=== PATIENT | female | born 1985 | race Caucasian/White ===

== ENCOUNTER 2021-08-20 13:36 | Inpatient (IN) | payer BC ==
[2021-08-20] MEDS ORDERED: Acetaminophen 325 MG Tab PO PRN (14:19)
[2021-08-20] MEDS ORDERED: Nalbuphine 10 MG/1 ML Vial IVPUSH PRN (14:19)
[2021-08-20] MEDS ORDERED: Ondansetron 4 MG/2 ML SDV IVPUSH PRN (14:19)
[2021-08-20] MEDS ORDERED: Calcium Carbonate 500 MG Tab.Chew PO PRN (14:19)
[2021-08-20] MEDS ORDERED: Sodium Chloride 0.9% 10 ML Syringe FLUSH PRN (14:19)
[2021-08-20] MEDS ORDERED: Oxytocin/Lactated Ringers 10 UNIT/1,000 ML BAG IV SCH ×2 (14:30)
[2021-08-20] MEDS: Lactated Ringers 1,000 ML IV SCH ×2 (15:00→16:18)
[2021-08-20] MEDS ORDERED: Bupivacaine/fentaNYL/NS 100 ML Bag EPIDUR PRN (15:13)
[2021-08-20] MEDS ORDERED: ePHEDrine 50 MG/ML SDV IVPUSH PRN (15:13)
[2021-08-20] MEDS ORDERED: diphenhydrAMINE 50 MG/ML SDV IVPUSH PRN (15:13)
[2021-08-20] MEDS ORDERED: fentaNYL 100 MCG/2 ML SDV EPIDUR PRN (15:13)
--- NOTE | 2021-08-20 16:11 | PCM.PREANE ---
Preanesthetic Assessment - Procedure Proposed Procedure: epidural - Anesthesia/Transfusion/Family Hx Anesthesia History: No Prior Anesthesia Family History of Anesthesia Reaction: No Transfusion History: No Prior Transfusion(s) - Review of Systems General: Fatigue, Malaise Pulmonary: No Symptoms Cardiovascular: No Symptoms Gastrointestinal: Abdominal Pain (labor) Neurological: No Symptoms Other: Reports: None - Physical Assessment Vital Signs: Last Vital Signs Temp 36.8 C 08/20/21 14:13 Pulse 66 08/20/21 14:13 Resp 14 08/20/21 14:13 BP 128/80 08/20/21 14:13 Pulse Ox 100 08/20/21 14:13 Height: 1.68 m Weight: 70.08 kg ASA Class: 2 Mental Status: Alert & Oriented x3 Airway Class: Mallampati = 1 Dentition: Reports: Normal Dentition Thyro-Mental Finger Breadths: 3 Mouth Opening Finger Breadths: 3 ROM/Head Extension: Full Lungs: Clear to Auscultation, Normal Respiratory Effort Cardiovascular: Regular Rate, Regular Rhythm - Lab Values: Laboratory Last Values WBC 12.40 K/mm3 (3.98-10.04) H 08/20/21 14:37 RBC 4.28 M/mm3 (3.98-5.22) 08/20/21 14:37 Hgb 13.4 gm/dl (11.2-15.7) 08/20/21 14:37 Hct 39.3 % (34.1-44.9) 08/20/21 14:37 MCV 91.8 fl (79.4-94.8) 08/20/21 14:37 MCH 31.3 pg (25.6-32.2) 08/20/21 14:37 MCHC 34.1 g/dl (32.2-35.5) 08/20/21 14:37 RDW Std Deviation 44.1 fL (36.4-46.3) 08/20/21 14:37 Plt Count 139 K/mm3 (182-369) L 08/20/21 14:37 MPV 11.0 fl (9.4-12.3) 08/20/21 14:37 Neut % (Auto) 85.8 % (34.0-71.1) H 08/20/21 14:37 Lymph % (Auto) 9.1 % (19.3-51.7) L 08/20/21 14:37 [place] % (Auto) 4.5 % (4.7-12.5) L 08/20/21 14:37 Eos % (Auto) 0.2 (0.7-5.8) L 08/20/21 14:37 Baso % (Auto) 0.2 % (0.1-1.2) 08/20/21 14:37 Neut # (Auto) 10.63 K/mm3 (1.56-6.13) H 08/20/21 14:37 Lymph # (Auto) 1.13 K/mm3 (1.18-3.74) L 08/20/21 14:37 [place] # (Auto) 0.56 K/mm3 (0.24-0.36) H 08/20/21 14:37 Eos # (Auto) 0.03 K/mm3 (0.04-0.36) L 08/20/21 14:37 Baso # (Auto) 0.02 K/mm3 (0.01-0.08) 08/20/21 14:37 SARS-CoV-2 RNA (MILENA) Negative (NEGATIVE) 08/20/21 14:40 Blood Type O POSITIVE 08/20/21 14:37 Gel Antibody Screen Negative 08/20/21 14:37 - Allergies Allergies/Adverse Reactions: Allergies Allergy/AdvReac Type Severity Reaction Status Date / Time No Known Allergies Allergy Verified 08/20/21 13:54 - Anesthesia Plan Pre-Op Medication Ordered: None - Acknowledgements Anesthesia Type Planned: Epidural Pt an Appropriate Candidate for the Planned Anesthesia: Yes Alternatives and Risks of Anesthesia Discussed w Pt/Guardian: Yes Pt/Guardian Understands and Agrees with Anesthesia Plan: Yes PreAnesthesia Questionnaire Gastrointestinal History: Reports: GERD - HOME MEDS Home Medications: Home Meds Acetaminophen [Tylenol] 650 mg PO Q4H PRN #50 tablet 07/23/15 [Rx] Hydrocodone/Acetaminophen [[place] 5-325 Tablet] 1 each PO Q8H #15 tablet 07/23/15 [Rx] Ibuprofen [Motrin] 200 - 800 mg PO Q6H #50 tablet 07/23/15 [Rx] - CURRENT (IN HOUSE) MEDS Current Meds: Current Medications Acetaminophen (Acetaminophen 325 Mg Tab) 650 mg PO Q4H PRN PRN Reason: Pain (Mild 1-3) and fever Calcium Carbonate/Glycine (Calcium Carbonate 500 Mg Tab.Chew) 1,000 mg PO Q2H PRN PRN Reason: Indigestion Diphenhydramine HCl (Diphenhydramine 50 Mg/Ml Sdv) 25 mg IVPUSH Q6H PRN PRN Reason: pruritis Ephedrine Sulfate (Ephedrine 50 Mg/Ml Sdv) 5 mg IVPUSH ASDIRECTED PRN PRN Reason: Hypotension Fentanyl (Fentanyl 100 Mcg/2 Ml Sdv) 100 mcg EPIDUR Q3H PRN PRN Reason: Pain Last Admin: 08/20/21 15:45 Dose: 100 mcg Documented by: Fentanyl/Bupivacaine HCl (Bupivacaine/Fentanyl/Ns 100 Ml Bag) 100 ml EPIDUR ASDIRECTED PRN PRN Reason: Pain Last Admin: 08/20/21 15:46 Dose: 100 ml Documented by: Lactated Ringer's (Ringers, Lactated) 1,000 mls @ 100 mls/hr IV ASDIRECTED SUSIE Last Admin: 08/20/21 15:00 Dose: 100 mls/hr Documented by: Oxytocin/Lactated Ringer's (Pitocin In Lr 10 Units/1,000 Ml) 10 unit in 1,000 mls @ 12 mls/hr IV TITRATE SUSIE; Protocol Oxytocin/Lactated Ringer's (Pitocin In Lr 10 Units/1,000 Ml) 10 unit in 1,000 mls @ 500 mls/hr IV .CONTINUOUS SUSIE Nalbuphine HCl (Nalbuphine 10 Mg/1 Ml Vial) 10 mg IVPUSH Q2H PRN PRN Reason: Pain Ondansetron HCl (Ondansetron 4 Mg/2 Ml Sdv) 4 mg IVPUSH Q4H PRN PRN Reason: Nausea/Vomiting Sodium Chloride (Sodium Chloride 0.9% 10 Ml Syringe) 10 ml FLUSH ASDIRECTED PRN PRN Reason: Keep Vein Open
[2021-08-20] MEDS ORDERED: Bupivacaine 0.25% 10 ML SDV ONE (20:00)
--- NOTE | 2021-08-20 21:48 | PCM.LDHP ---
L&D History of Present Illness - General Date of Service: 08/20/21 Admit Problem/Dx: Patient Status Order with Admit Dx/Problem 08/20/21 13:48 Patient Status [ADT] Routine 08/20/21 14:20 Patient Status [ADT] Routine Admission Diagnosis/Problem Admission Diagnosis/Problem Term Source of Information: Patient History Limitations: Reports: No Limitations - History of Present Illness Introduction:: 35 year old at 39w2 here in active labor. Contractions started getting more regular this morning and then much stronger and more regular on the drive from [place] around [place]. PNC with Dr. Pavon complicated by AMA normal NIPT. 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: Psychiatric History: Reports: Anxiety - Past Surgical History HEENT Surgical History: Reports: Oral Surgery, Tonsillectomy Female Surgical History: Reports: Other (See Below) Other Female Surgeries/Procedures: HSIL in 2014, colposcopy in 2014 Social & Family History - Family History Family Medical History: No Pertinent Family History - Tobacco Use Tobacco Use Status *Q: Never Tobacco User Second Hand Smoke Exposure: No - Recreational Drug Use Recreational Drug Use: No H&P Review of Systems - Review of Systems: Review Of Systems: See Below General: Reports: No Symptoms HEENT: Reports: No Symptoms Pulmonary: Reports: No Symptoms Cardiovascular: Reports: No Symptoms Gastrointestinal: Reports: No Symptoms Genitourinary: Reports: No Symptoms Musculoskeletal: Reports: No Symptoms Skin: Reports: No Symptoms Psychiatric: Reports: No Symptoms Neurological: Reports: No Symptoms Hematologic/Lymphatic: Reports: No Symptoms Immunologic: Reports: No Symptoms L&D Exam - Exam Exam: See Below - Vital Signs Vital Signs: Last Vital Signs Temp 36.8 C 08/20/21 14:13 Pulse 66 08/20/21 14:13 Resp 14 08/20/21 14:13 BP 128/80 08/20/21 14:13 Pulse Ox 100 08/20/21 14:13 Weight: 70.08 kg - OB Specific Contraction Intensity: Irritability Movement: Active Heart Tones: Present Heart Rate (FHR) Variability: Moderate (6-25 bpm) Presentation: Vertex - Michelle Score Michelle Score Cervix Position: Midposition Michelle Score Consistency: Soft Michelle Score Effacement: 51-70% Michelle Score Dilation: 3-4 cm Michelle Score Infant's Station: -2 Michelle Score Total: 8 - Exam General: Alert, Oriented HEENT: PERRLA, Conjunctiva Clear, EACs Clear, EOMI, Hearing Intact, Mucosa Moist & [place], Nares Patent, Normal Nasal Septum, Posterior Pharynx Clear, TMs Clear Neck: Supple, Trachea Midline Lungs: Clear to Auscultation, Normal Respiratory Effort Cardiovascular: Regular Rate GI/Abdominal Exam: Normal Bowel Sounds Rectal Exam: Normal Exam Back Exam: Normal Inspection, Full Range of Motion Extremities: Normal Inspection, Normal Range of Motion, Non-Tender, No Pedal Edema, Normal Capillary Refill Skin: Warm, Dry, Intact Neurological: Cranial Nerves Intact, Reflexes Equal Bilateral Psychiatric: Alert, Normal Affect, Normal Mood - Patient Data Lab Results Last 24 hrs: Laboratory Results - last 24 hr 08/20/21 08/20/21 08/20/21 Range/Units 14:37 14:37 14:37 WBC 12.40 H (3.98-10.04) K/mm3 RBC 4.28 (3.98-5.22) M/mm3 Hgb 13.4 (11.2-15.7) gm/dl Hct 39.3 (34.1-44.9) % MCV 91.8 (79.4-94.8) fl MCH 31.3 (25.6-32.2) pg MCHC 34.1 (32.2-35.5) g/dl RDW Std Deviation 44.1 (36.4-46.3) fL Plt Count 139 L (182-369) K/mm3 MPV 11.0 (9.4-12.3) fl Neut % (Auto) 85.8 H (34.0-71.1) % Lymph % (Auto) 9.1 L (19.3-51.7) % [place] % (Auto) 4.5 L (4.7-12.5) % Eos % (Auto) 0.2 L (0.7-5.8) Baso % (Auto) 0.2 (0.1-1.2) % Neut # (Auto) 10.63 H (1.56-6.13) K/mm3 Lymph # (Auto) 1.13 L (1.18-3.74) K/mm3 [place] # (Auto) 0.56 H (0.24-0.36) K/mm3 Eos # (Auto) 0.03 L (0.04-0.36) K/mm3 Baso # (Auto) 0.02 (0.01-0.08) K/mm3 RPR Non-reactive (NONREACTIVE) SARS-CoV-2 RNA (MILENA) (NEGATIVE) Blood Type O POSITIVE Gel Antibody Screen Negative 08/20/21 Range/Units 14:40 WBC (3.98-10.04) K/mm3 RBC (3.98-5.22) M/mm3 Hgb (11.2-15.7) gm/dl Hct (34.1-44.9) % MCV (79.4-94.8) fl MCH (25.6-32.2) pg MCHC (32.2-35.5) g/dl RDW Std Deviation (36.4-46.3) fL Plt Count (182-369) K/mm3 MPV (9.4-12.3) fl Neut % (Auto) (34.0-71.1) % Lymph % (Auto) (19.3-51.7) % [place] % (Auto) (4.7-12.5) % Eos % (Auto) (0.7-5.8) Baso % (Auto) (0.1-1.2) % Neut # (Auto) (1.56-6.13) K/mm3 Lymph # (Auto) (1.18-3.74) K/mm3 [place] # (Auto) (0.24-0.36) K/mm3 Eos # (Auto) (0.04-0.36) K/mm3 Baso # (Auto) (0.01-0.08) K/mm3 RPR (NONREACTIVE) SARS-CoV-2 RNA (MILENA) Negative (NEGATIVE) Blood Type Gel Antibody Screen Result Diagrams: 08/20/21 14:37 Problem List Initiated/Reviewed/Updated: Yes Orders Last 24hrs: Active Orders 24 hr Category Date Time Status Patient Status [ADT] Routine ADT 08/20/21 14:20 Active Activity as Tolerated [RC] PFP Care 08/20/21 14:19 Active Communication Order [RC] ASDIRECTED Care 08/20/21 14:19 Active Communication Order [RC] ASDIRECTED Care 08/20/21 15:13 Active Cooling Warming Measures [RC] ASDIRECTED Care 08/20/21 15:13 Active Heart Tones [RC] ASDIRECTED Care 08/20/21 14:20 Active Non Stress Test [RC] PER UNIT ROUTINE Care 08/20/21 13:48 Active Notify Provider [RC] ASDIRECTED Care 08/20/21 15:13 Active Notify Provider [RC] ASDIRECTED Care 08/20/21 15:13 Active Notify Provider [RC] PFP Care 08/20/21 14:19 Active Notify Provider [RC] PRN Care 08/20/21 14:19 Active Oxygen Therapy [RC] ASDIRECTED Care 08/20/21 15:13 Active Peripheral IV Care [RC] . DIRECTED Care 08/20/21 14:20 Active Pulse Oximetry [RC] ASDIRECTED Care 08/20/21 15:13 Active Vital Signs [RC] PER UNIT ROUTINE Care 08/20/21 13:48 Active Regular Diet [DIET] Diet 08/20/21 Lunch Active HEP C VIRUS AB [REF] Stat Lab 08/20/21 14:37 Received Acetaminophen [TylenoL] Med 08/20/21 14:19 Active 650 mg PO Q4H PRN Bupivacaine/fentaNYL/NS [fentaNYL/Bupivacaine/NS 2 MCG- Med 08/20/21 15:13 Active 0.125% 100 ML] 100 ml EPIDUR ASDIRECTED PRN Calcium Carbonate [Tums] Med 08/20/21 14:19 Active 1,000 mg PO Q2H PRN Lactated Ringers [Ringers, Lactated] 1,000 ml Med 08/20/21 14:30 Active IV ASDIRECTED Nalbuphine [Nubain] Med 08/20/21 14:19 Active 10 mg IVPUSH Q2H PRN Ondansetron [Zofran] Med 08/20/21 14:19 Active 4 mg IVPUSH Q4H PRN Oxytocin/Lactated Ringers [Pitocin in LR 10 Units/1,000 Med 08/20/21 14:30 Active ML] 10 unit in 1,000 ml IV .CONTINUOUS Oxytocin/Lactated Ringers [Pitocin in LR 10 Units/1,000 Med 08/20/21 14:30 Active ML] 10 unit in 1,000 ml IV TITRATE Sodium Chloride 0.9% [Saline Flush] Med 08/20/21 14:19 Active 10 ml FLUSH ASDIRECTED PRN diphenhydrAMINE [Benadryl] Med 08/20/21 15:13 Active 25 mg IVPUSH Q6H PRN ePHEDrine [ePHEDrine sulfate] Med 08/20/21 15:13 Active 5 mg IVPUSH ASDIRECTED PRN fentaNYL [Sublimaze] Med 08/20/21 15:13 Active 100 mcg EPIDUR Q3H PRN Electronic Heart Tones Ext w TOCO [WOMSER] Oth 08/20/21 14:19 Ordered Routine Electronic Heart Tones Internal [WOMSER] Per Unit Oth 08/20/21 14:19 Ordered Routine Peripheral IV Insertion Adult [OM.PC] Routine Oth 08/20/21 14:19 Ordered Resuscitation Status Routine Resus Stat 08/20/21 13:48 Ordered Medication Orders Acetaminophen (Acetaminophen 325 Mg Tab) 650 mg PO Q4H PRN PRN Reason: Pain (Mild 1-3) and fever Calcium Carbonate/Glycine (Calcium Carbonate 500 Mg Tab.Chew) 1,000 mg PO Q2H PRN PRN Reason: Indigestion Diphenhydramine HCl (Diphenhydramine 50 Mg/Ml Sdv) 25 mg IVPUSH Q6H PRN PRN Reason: pruritis Ephedrine Sulfate (Ephedrine 50 Mg/Ml Sdv) 5 mg IVPUSH ASDIRECTED PRN PRN Reason: Hypotension Fentanyl (Fentanyl 100 Mcg/2 Ml Sdv) 100 mcg EPIDUR Q3H PRN PRN Reason: Pain Last Admin: 08/20/21 15:45 Dose: 100 mcg Documented by: KELLCOL Fentanyl/Bupivacaine HCl (Bupivacaine/Fentanyl/Ns 100 Ml Bag) 100 ml EPIDUR ASDIRECTED PRN PRN Reason: Pain Last Admin: 08/20/21 15:46 Dose: 100 ml Documented by: SHAWNA Lactated Ringer's (Ringers, Lactated) 1,000 mls @ 100 mls/hr IV ASDIRECTED SUSIE Last Admin: 08/20/21 16:18 Dose: 100 mls/hr Documented by: Infusion: 08/20/21 16:18 Dose: 100 mls/hr Documented by: Admin: 08/20/21 15:00 Dose: 100 mls/hr Documented by: SHAWNA Oxytocin/Lactated Ringer's (Pitocin In Lr 10 Units/1,000 Ml) 10 unit in 1,000 mls @ 12 mls/hr IV TITRATE SUSIE; Protocol Last Admin: 08/20/21 20:45 Dose: 2 munits/min, 12 mls/hr Documented by: STEVE Oxytocin/Lactated Ringer's (Pitocin In Lr 10 Units/1,000 Ml) 10 unit in 1,000 mls @ 500 mls/hr IV .CONTINUOUS SUSIE Nalbuphine HCl (Nalbuphine 10 Mg/1 Ml Vial) 10 mg IVPUSH Q2H PRN PRN Reason: Pain Ondansetron HCl (Ondansetron 4 Mg/2 Ml Sdv) 4 mg IVPUSH Q4H PRN PRN Reason: Nausea/Vomiting Sodium Chloride (Sodium Chloride 0.9% 10 Ml Syringe) 10 ml FLUSH ASDIRECTED PRN PRN Reason: Keep Vein Open Assessment/Plan Comment:: Term labor. Desires epidural. Labs and COVID test pending. IVFluids. Anticipate unless otherwise indicated.
--- NOTE | 2021-08-20 21:52 | PCM.SN.2 ---
- Free Text/Narrative Note: Stage I - Patient presented in active labor. Cervix 4 cm. Epidural placed. SROM clear fluid. Progressed to complete with reassuring heart tones. Stage II - of viable female, weight 2840g, 8/9 APGARS at 2126. Head delivered in controlled manner over intact perineum. body and shoulders followed atraumatically. To maternal abdomen. Positive cry. Cord clamped and cut by FOB at 2 minutes of life. Cord blood collected. Stage III - of intact placenta. 3vc. Small 1st degree laceration repaired with 3-0 vicryl. EBL 175 Time Documentation
[2021-08-20] MEDS ORDERED: Docusate Sodium 100 MG Cap PO PRN (22:18)
[2021-08-20] MEDS ORDERED: Benzocaine/Menthol 20%-0.5% Spray 78 GM Cannister TOP PRN (22:18)
[2021-08-20] MEDS ORDERED: Witch Hazel Medicated Pads 40/Jar TOP PRN (22:18)
[2021-08-20] MEDS: Ibuprofen 600 MG Tab PO PRN (23:08)
--- NOTE | 2021-08-21 07:53 | PCM.SN.2 ---
- Free Text/Narrative Note: note: Patient is doing well in the period. Minimal lochia, voiding well, ambulated without problems. Nursing without concerns. Patient is afebrile, vital signs are stable Abdomen is flat, soft, uterus is below the umbilicus and is firm and nontender. Legs are nontender. Assessment: recovery going well. Plan: Routine care. Patient be discharged home within the next 24-48 hours. Time Documentation
[2021-08-21] MEDS: Ibuprofen 600 MG Tab PO PRN ×3 (09:58→23:14)
--- NOTE | 2021-08-21 11:57 | PCM48HPAN ---
Post Anesthesia Note - EVALUATION WITHIN 48HRS OF ANESTHETIC Vital Signs in Normal Range: Yes Patient Participated in Evaluation: Yes Respiratory Function Stable: Yes Airway Patent: Yes Cardiovascular Function Stable: Yes Hydration Status Stable: Yes Pain Control Satisfactory: Yes Nausea and Vomiting Control Satisfactory: Yes Mental Status Recovered: Yes Vital Signs: Last Vital Signs Temp 97.5 F 08/21/21 04:10 Pulse 61 08/21/21 04:10 Resp 15 08/21/21 04:10 BP 108/70 08/21/21 04:10 Pulse Ox 98 08/21/21 04:10 - COMMENTS/OBSERVATIONS Free Text/Narrative:: I visited with patient regarding her epidural experience. Patient stated that it "worked great". Discussed signs and symptoms of infection, post-dural puncture headache, and post- depression. Patient denying any of those symptoms at this time. Encouraged patient to contact OB/Anesthesia if any of these symptoms develop even after the patient goes home so the patient may be treated accordingly if needed. Also discussed that the patient may experience some back pain from the epidural placement. Patient stated that she does have some mild discomfort in which she described as a bruise. Encouraged patient to contact OB/Anesthesia if her back pain get worse. Patient verbalized understanding. No questions or concerns verbalized at this time. Annia Singh, SHADING PAINTER
[2021-08-21] MEDS ORDERED: Acetaminophen 325 MG Tab PO PRN (21:59)
--- NOTE | 2021-08-22 02:41 | PCM.DCSUM1 ---
Discharge Summary - Hospital Course Free Text/Narrative:: Brynn is a 36-year-old 1 now para 1-0-0-1 white female who was admitted on 08/20/2021 at 39-2/7 weeks gestational age in active labor with SROM. Clear fluid resulted. She progressed in labor steadily and underwent epidural for labor analgesia. Stage I - Patient presented in active labor. Cervix 4 cm. Epidural placed. SROM clear fluid. Progressed to complete with reassuring heart tones. Stage II - of viable female, weight 2840g, 8/9 APGARS at 2126. Head delivered in controlled manner over intact perineum. body and shoulders followed atraumatically. To maternal abdomen. Positive cry. Cord clamped and cut by FOB at 2 minutes of life. Cord blood collected. Stage III - of intact placenta. 3vc. Small 1st degree laceration repaired with 3-0 vicryl. EBL 175 patient has done well. She is nursing without problems, ambulating well, has minimal lochia and is desiring discharge home. Condition: Good. Diagnosis: Stroke: No - Discharge Data Discharge Date: 08/22/21 Discharge Disposition: Home, Self-Care 01 Condition: Good - Referral to Home Health Primary Care Physician: Nelida Cannon MD - Discharge Diagnosis/Problem(s) (1) 39 weeks gestation of SNOMED Code(s): 33555444 ICD Code: Z3A.39 - 39 WEEKS GESTATION OF Status: Acute Current Visit: Yes - Patient Instructions Diet: Regular Diet as Tolerated (Nursing diet with increased calories and calcium as recommended) Activity: As Tolerated (No intercourse or tampons until bleeding resolves) Driving: May Drive Today Showering/Bathing: May Shower Showering/Bathing, Other: May take a bath Notify Provider of: Fever, Increased Pain, Swelling and Redness, Nausea and/or Vomiting - Discharge Plan Home Medications: Home Meds Calcium Carbonate [Calcium] 1 tab PO DAILY 08/20/21 [History] Vits #93/Iron Fum/FA [ Formula Tablet] 1 tab PO DAILY 08/20/21 [History] Acetaminophen [Tylenol] 650 mg PO Q4H PRN tablet 08/22/21 [Rx] Ibuprofen [Motrin] 600 mg PO Q6H PRN tablet 08/22/21 [Rx] Referrals: Kj Pavon MD [Physician] - - Discharge Summary/Plan Comment DC Time >30 min.: No Total # of Minutes for Discharge Time: 10 minutes Discharge Summary/Plan Comment: Discharge instructions: 1. Discharge home 2. Diet, activity and follow-up discussed with patient. Recommend nursing diet with increased calories and calcium. 3. Precautions given concern increased pain, bleeding, temperature, sign s/symptoms of DVT/PE. 4. Medications per home medication was printed, discussed with and given to the patient. 5. Return to clinic-Dr. Pavon[facility] in 2 weeks. Diagnosis: Term -delivered Condition: Good - Patient Data Vitals - Most Recent: Last Vital Signs Temp 36.4 C 08/21/21 21:11 Pulse 57 L 08/21/21 21:11 Resp 14 08/21/21 21:11 BP 111/75 08/21/21 21:11 Pulse Ox 95 08/21/21 21:11 Weight - Most Recent: 70.08 kg I&O - Last 24 hours: Intake & Output 08/21/21 08/21/21 08/22/21 14:59 22:59 06:59 Intake Total 5 0 Balance 5 0 Med Orders - Current: Current Medications Acetaminophen (Acetaminophen 325 Mg Tab) 650 mg PO Q4H PRN PRN Reason: Pain (mild 1-3) Last Admin: 08/21/21 22:23 Dose: 650 mg Documented by: Benzocaine/Menthol (Benzocaine/Menthol 20%-0.5% [place] 78 Gm Cannister) 0 gm TOP ASDIRECTED PRN PRN Reason: Perineal Comfort Measure Last Admin: 08/20/21 23:07 Dose: 1 canister Documented by: Docusate Sodium (Docusate Sodium 100 Mg Cap) 100 mg PO BID PRN PRN Reason: Constipation Ibuprofen (Ibuprofen 600 Mg Tab) 600 mg PO Q6H PRN PRN Reason: Mild pain or fever Last Admin: 08/21/21 23:14 Dose: 600 mg Documented by: Leida Strange (Witch Alie Medicated Pads 40/Jar) 1 pad TOP ASDIRECTED PRN PRN Reason: Perineal Comfort Measure Last Admin: 08/20/21 23:08 Dose: 1 tub Documented by: Discontinued Medications Acetaminophen (Acetaminophen 325 Mg Tab) 650 mg PO Q4H PRN PRN Reason: Pain (Mild 1-3) and fever Calcium Carbonate/Glycine (Calcium Carbonate 500 Mg Tab.Chew) 1,000 mg PO Q2H PRN PRN Reason: Indigestion Diphenhydramine HCl (Diphenhydramine 50 Mg/Ml Sdv) 25 mg IVPUSH Q6H PRN PRN Reason: pruritis Ephedrine Sulfate (Ephedrine 50 Mg/Ml Sdv) 5 mg IVPUSH ASDIRECTED PRN PRN Reason: Hypotension Fentanyl (Fentanyl 100 Mcg/2 Ml Sdv) 100 mcg EPIDUR Q3H PRN PRN Reason: Pain Last Admin: 08/20/21 15:45 Dose: 100 mcg Documented by: Fentanyl/Bupivacaine HCl (Bupivacaine/Fentanyl/Ns 100 Ml Bag) 100 ml EPIDUR ASDIRECTED PRN PRN Reason: Pain Last Admin: 08/20/21 15:46 Dose: 100 ml Documented by: Lactated Ringer's (Ringers, Lactated) 1,000 mls @ 100 mls/hr IV ASDIRECTED SUSIE Last Admin: 08/20/21 16:18 Dose: 100 mls/hr Documented by: Oxytocin/Lactated Ringer's (Pitocin In Lr 10 Units/1,000 Ml) 10 unit in 1,000 mls @ 12 mls/hr IV TITRATE SUSIE; Protocol Last Titration: 08/20/21 21:30 Dose: 83.33 munits/min, 499.98 mls/hr Documented by: Oxytocin/Lactated Ringer's (Pitocin In Lr 10 Units/1,000 Ml) 10 unit in 1,000 mls @ 500 mls/hr IV .CONTINUOUS SUSIE Nalbuphine HCl (Nalbuphine 10 Mg/1 Ml Vial) 10 mg IVPUSH Q2H PRN PRN Reason: Pain Ondansetron HCl (Ondansetron 4 Mg/2 Ml Sdv) 4 mg IVPUSH Q4H PRN PRN Reason: Nausea/Vomiting Sodium Chloride (Sodium Chloride 0.9% 10 Ml Syringe) 10 ml FLUSH ASDIRECTED PRN PRN Reason: Keep Vein Open
[2021-08-22] MEDS: Ibuprofen 600 MG Tab PO PRN (07:32)
[2021-08-22 08:08] VITALS: BP 107/66; PULSE 63
== END 2021-08-22 13:46 | disposition home or self-care (01) | DRG 560 ==
LOC: JD.OBCHECK 13:36 → JD.OB 13:44 → JD.OBCHECK 13:48 → JD.OB 21:26 → OBSVTOIN 21:26
PROVIDERS: ADMIT Obstetrics & Gynecology; ATTEND Obstetrics & Gynecology
PROC: 10E0XZZ Delivery of Products of Conception, External Approach (ICD-10-PCS; principal; 2021-08-20)
PROC: 0HQ9XZZ Repair Perineum Skin, External Approach (ICD-10-PCS; 2021-08-20)
PROC: 3E0R3BZ Introduction of Anesthetic Agent into Spinal Canal, Percutaneous Approach (ICD-10-PCS; 2021-08-20)
DX: O70.0 First degree perineal laceration during delivery (principal); Z3A.38 38 weeks gestation of pregnancy; Z37.0 Single live birth; Z20.822 Contact with and (suspected) exposure to COVID-19
CPT/HCPCS: 36415; 51702; 59025; 59409; 85025; 86592; 86803; 86850; 86900; 86901; A9270-GY; J2590; J3010; J3490; J7120; U0002

== ENCOUNTER 2023-09-21 19:34 | Inpatient (IN) | payer BC ==
[2023-09-21] MEDS ORDERED: Ondansetron 4 MG/2 ML SDV IVPUSH PRN (20:11)
[2023-09-21] MEDS ORDERED: Calcium Carbonate 500 MG Tab.Chew PO PRN (20:11)
[2023-09-21] MEDS ORDERED: Nalbuphine HCl 10 MG/ 1ML Amp IVPUSH PRN (20:11)
[2023-09-21] MEDS ORDERED: Lidocaine 1% 50 ML MDV INJECT ONE (20:11)
[2023-09-21] MEDS ORDERED: Lactated Ringers 1,000 ML IV SCH (20:15)
[2023-09-21] MEDS ORDERED: Oxytocin/Lactated Ringers 10 UNIT/1,000 ML BAG IV SCH ×2 (20:15)
[2023-09-21 20:45] LABS: BASOPHILS PERCENT AUTO 0.3 % (0.0-1.0); EOSINOPHILS ABSOLUTE AUTO 0.1 K/mm3 (0.0-0.4); EOSINOPHILS PERCENT AUTO 0.4 % (0.0-6.0); HEMATOCRIT 36.5 % (37.0-47.0); HEMOGLOBIN 12.6 gm/dl (12.0-16.0); IMMATURE GRAN ABSOLUTE AUTO 0.05 K/mm3 (0.00-0.05); IMMATURE GRAN PERCENT AUTO 0.4 % (0.0-0.4); LYMPHOCYTES PERCENT AUTO 16.2 % (24.0-44.0); MEAN CORPUSCULAR HEMOGLOBIN 31.7 pg (28.0-32.0); MEAN CORPUSCULAR HGB CONC 34.5 g/dl (32.0-36.0); MEAN CORPUSCULAR VOLUME 91.9 fl (83.0-99.0); MEAN PLATELET VOLUME 10.8 fl (9.4-12.3); MONOCYTES ABSOLUTE AUTO 0.5 K/mm3 (0.0-0.8); MONOCYTES PERCENT AUTO 4.1 % (0.0-8.0); NEUTROPHILS ABSOLUTE AUTO 9.6 K/mm3 (1.8-7.7); NEUTROPHILS PERCENT AUTO 78.6 % (41.0-71.0); PLATELET COUNT,PLT 126 K/mm3 (150-400); RED BLOOD CELL COUNT 3.97 M/mm3 (4.10-5.30); WHITE BLOOD CELL COUNT,WBC 12.25 K/mm3 (3.9-11.3)
[2023-09-21] MEDS ORDERED: Bupivacaine/fentaNYL/NS 100 ML Bag EPIDUR PRN (21:19)
[2023-09-21] MEDS ORDERED: diphenhydrAMINE 50 MG/ML SDV IVPUSH PRN (21:19)
[2023-09-21] MEDS ORDERED: ePHEDrine 50 MG/ML SDV IVPUSH PRN (21:19)
[2023-09-21] MEDS ORDERED: fentaNYL 100 MCG/2 ML SDV EPIDUR PRN (21:19)
[2023-09-22] MEDS ORDERED: Lidocaine 1.5% with EPINEPHrine 1:200,000 5 ML Amp ONE
[2023-09-22] MEDS ORDERED: Benzocaine/Menthol 20%-0.5% Spray 78 GM Cannister TOP PRN (05:00)
[2023-09-22] MEDS ORDERED: Witch Hazel Medicated Pads 40/Jar TOP PRN (05:00)
[2023-09-22] MEDS: Ibuprofen 600 MG Tab PO PRN ×2 (12:37→18:28)
[2023-09-22] MEDS: Acetaminophen 325 MG Tab PO PRN ×2 (16:10→22:43)
[2023-09-23] MEDS: Ibuprofen 600 MG Tab PO PRN ×4 (00:28→19:20)
[2023-09-23] MEDS: Acetaminophen 325 MG Tab PO PRN ×2 (04:49→16:49)
[2023-09-24] MEDS: Acetaminophen 325 MG Tab PO PRN (01:16)
[2023-09-24] MEDS: Ibuprofen 600 MG Tab PO PRN ×2 (04:15→09:42)
[2023-09-24 11:50] VITALS: BP 109/73; PULSE 61
== END 2023-09-24 12:07 | disposition home or self-care (01) | DRG 560 ==
LOC: JD.OBCHECK 19:34 → JD.OB 19:50 → JD.OBCHECK 20:12 → OBSVTOIN 09-22 04:18 → JD.OB 09-22 04:29
PROVIDERS: ADMIT Obstetrics & Gynecology; ATTEND Obstetrics & Gynecology
PROC: 10E0XZZ Delivery of Products of Conception, External Approach (ICD-10-PCS; principal; 2023-09-22)
PROC: 3E033VJ Introduction of Other Hormone into Peripheral Vein, Percutaneous Approach (ICD-10-PCS; 2023-09-22)
PROC: 3E0R3BZ Introduction of Anesthetic Agent into Spinal Canal, Percutaneous Approach (ICD-10-PCS; 2023-09-22)
PROC: 00HU33Z Insertion of Infusion Device into Spinal Canal, Percutaneous Approach (ICD-10-PCS; 2023-09-22)
DX: O42.02 Full-term premature rupture of membranes, onset of labor within 24 hours of rupture (principal); Z37.0 Single live birth; O69.81X0 Labor and delivery complicated by cord around neck, without compression, not applicable or unspecified; Z3A.37 37 weeks gestation of pregnancy; Z79.899 Other long term (current) drug therapy; Z79.82 Long term (current) use of aspirin; Z90.89 Acquired absence of other organs; Z98.890 Other specified postprocedural states
CPT/HCPCS: 36415; 51702; 59025; 59409; 85025; 86592; 86850; 86900; 86901; A9270-GY; J2590; J3490; J7120